=== PATIENT | female | born 1985 | race African-American/Black ===

== ENCOUNTER 2018-01-03 06:00 | Inpatient (IN) | payer OTHER ==
[2018-01-03 11:01] VITALS: BMI 31.0
[2018-01-03] MEDS ORDERED: HYDROcodone/Acetaminophen 5/325 mg Tablet PO PRN ×4 (11:20→18:00)
[2018-01-03] MEDS ORDERED: Ibuprofen 800 MG TAB PO PRN ×2 (11:20→18:00)
[2018-01-03] MEDS ORDERED: Lidocaine 1% (PF) 30 ML VIAL SC PRN (11:20)
[2018-01-03] MEDS ORDERED: Ondansetron HCl/PF 4 MG/2 ML Vial IVP PRN (11:20)
[2018-01-03] MEDS ORDERED: Sodium Chloride 0.9% 100 ML ONE (11:21)
[2018-01-03] MEDS ORDERED: Penicillin G Potassium 5 MILL.UNITS VIAL ONE (11:21)
[2018-01-03] MEDS ORDERED: Penicillin G Potassium 5 MILL.UNITS in Sodium Chloride 0.9% 100 ML IVPB SCH (11:30)
[2018-01-03] MEDS ORDERED: Lactated Ringer's 1,000 ML IV SCH (11:30)
[2018-01-03] MEDS ORDERED: NS w/ Oxytocin 10 units 500 ML IV SCH (11:30)
[2018-01-03 11:41] LABS: Hemoglobin 11.8 g/dL (12.0-16.0); Mean Corpuscular HGB CONC 32.3 g/dL (32.0-36.0); Mean Corpuscular Hemoglobin 29.7 pg (27.0-31.0); Mean Platelet Volume 10.1 fL (7.4-10.4); Platelet Count 131 thou/uL (130-400); RBC Distribution Width 12.7 % (11.5-14.5); Red Blood Cell (RBC) Count 3.99 mill/uL (4.20-5.40); White Blood Cell (WBC) Count 4.2 thou/uL (4.8-10.8)
[2018-01-03] MEDS: Dextrose 5%-Lactated Ringers 1,000 ML IV SCH (11:52)
[2018-01-03 12:23] LABS: HBSAg Index 0.18 S/CO (0-0.99); Hep B Surf Ag Non-Reactive S/CO (NonReactive)
[2018-01-03 12:25] LABS: Syphilis Antibody Nonreactive (Nonreactive); Syphilis Antibody Index 0.03 S/CO (<1.00 Non-Reactive)
[2018-01-03] MEDS ORDERED: Butorphanol Tartrate 1 MG/ML VIAL ONE (13:14)
[2018-01-03] MEDS ORDERED: Butorphanol Tartrate 1 MG/ML VIAL SLOW IVP PRN (13:52)
[2018-01-03] MEDS: Penicillin G 2.5 MILL.units 2.5 MILL.UNITS in Premix Bag 1 BAG IVPB SCH (14:59)
[2018-01-03] MEDS: NS / Oxytocin 40 units/1000ml 1,000 ML IV PRN ×2 (15:50→17:17)
[2018-01-03] MEDS ORDERED: Acetaminophen/Codeine 30-300mg Tablet PO PRN ×2 (18:00)
[2018-01-03] MEDS ORDERED: NS / Oxytocin 40 units/1000ml 1,000 ML IV SCH (18:00)
[2018-01-03] MEDS ORDERED: Methylergonovine 0.2 MG/ML VIAL IM PRN (18:00)
[2018-01-04] MEDS: Penicillin G 2.5 MILL.units 2.5 MILL.UNITS in Premix Bag 1 BAG IVPB SCH ×2 (09:02→09:04)
[2018-01-04] MEDS: Dextrose 5%-Lactated Ringers 1,000 ML IV SCH (09:05)
[2018-01-04 09:06] VITALS: BP 103/57; TEMP 98.1
[2018-01-04] MEDS ORDERED: Measles/Mumps/Rubella 10 MCG/0.5 ML VIAL SC ONE (16:00)
== END 2018-01-04 17:55 | disposition home or self-care (01) | DRG 775 ==
LOC: EEVIPCON 10:17 → L&D 10:17 → 3SW 18:17
PROVIDERS: ADMIT Obstetrics & Gynecology; ATTEND Obstetrics & Gynecology
PROC: 10E0XZZ Delivery of Products of Conception, External Approach (ICD-10-PCS; principal; 2018-01-03)
PROC: 10907ZC Drainage of Amniotic Fluid, Therapeutic from Products of Conception, Via Natural or Artificial Opening (ICD-10-PCS; 2018-01-03)
DX: O99.824 Streptococcus B carrier state complicating childbirth (principal); Z3A.39 39 weeks gestation of pregnancy; Z37.0 Single live birth
CPT/HCPCS: 36415; 85027; 86762; 86780; 86850; 86900; 86901; 87340; 90707; J0595; J2001; J2540; J7050

== ENCOUNTER 2020-02-29 11:33 | Outpatient (CLI) | payer OTHER ==
[2020-03-01 13:25] LABS: SARS-CoV-2 MS2 Positive; SARS-CoV-2 N Gene Negative; SARS-CoV-2 S Gene Negative; SARS-CoV-2 by NAA Not Detected (NotDetected); SARS-CoV-2 orf1ab Negative
== END 2020-02-29 11:34 | disposition home or self-care (01) ==
LOC: LABSCS 11:33
PROVIDERS: ATTEND Obstetrics & Gynecology
DX: Z20.828 Contact with and (suspected) exposure to other viral communicable diseases (principal)
CPT/HCPCS: 87635; U0003

== ENCOUNTER 2020-03-03 05:30 | Inpatient (IN) | payer OTHER ==
--- NOTE | 2020-03-03 01:04 | PDOC.LDHP ---
Labor and Delivery H&P HPI: 34 y/o at 39 weeks and 1 day, presents for term elective induction of labor. Current gestational age (weeks): 39 Due date: 03/09/20 Grav: 8 Para: 6 Current complications: none Abnormal US findings: No Current medications: pre- vitamins Allergies/Adverse Reactions: Allergies Allergy/AdvReac Type Severity Reaction Status Date / Time No Known Allergies Allergy Unverified 08/30/19 16:39 Social history: none - Physical Exam Vital signs reviewed and normal: yes General: NAD, resting Heart: RRR Lungs: CTAB Abdomen: gravid Extremeties: no edema FHT: category 1 - Assessment L&D Assessment: elective induction at term - Plan Plan: admit to L&D, cervical ripening
[~2020-03-03 05:30] MED LIST: Acetaminophen 500 MG TAB PO PRN; Butorphanol Tartrate 1 MG/ML VIAL SLOW IVP PRN; Carboprost 250 MCG/ML AMP IM PRN; Diphenoxylate HCl/Atropine Tablet PO PRN; Docusate 100 MG CAP PO PRN; HYDROcodone/Acetaminophen 5/325 mg Tablet PO PRN; Ibuprofen 800 MG TAB PO PRN; Lidocaine 1% (PF) 30 ML VIAL SC PRN; Methylergonovine 0.2 MG/ML VIAL IM PRN; Misoprostol 200 MCG TAB PR PRN; NS / Oxytocin 40 units/1000ml 1,000 ML IV PRN; NS w/ Oxytocin 10 units 500 ML IV SCH; Ondansetron PF 4 MG/2 ML Vial IVP PRN; Promethazine HCl 25 MG/ML VIAL IM PRN; hydrALAZINE 20 MG/ML VIAL SLOW IVP PRN
[2020-03-03 06:16] VITALS: BMI 35.5
[2020-03-03] MEDS: Lactated Ringer's 1,000 ML IV SCH ×2 (06:38→18:56)
[2020-03-03 06:52] LABS: Hemoglobin 11.2 g/dL (12.0-16.0); Mean Corpuscular HGB CONC 31.8 g/dL (32.0-36.0); Mean Corpuscular Hemoglobin 28.8 pg (27.0-31.0); Mean Corpuscular Volume 90.7 fL (78.0-98.0); Mean Platelet Volume 10.7 fL (7.4-10.4); Platelet Count 131 thou/uL (130-400); RBC Distribution Width 13.8 % (11.5-14.5); Red Blood Cell (RBC) Count 3.89 mill/uL (4.20-5.40); White Blood Cell (WBC) Count 4.6 thou/uL (4.8-10.8)
[2020-03-03 07:36] LABS: HBSAg Index 0.15 S/CO (0-0.99); Hep B Surf Ag Non-Reactive S/CO (NonReactive); Syphilis Antibody Nonreactive (Nonreactive); Syphilis Antibody Index 0.03 S/CO (<1.00 Non-Reactive)
[2020-03-03] MEDS ORDERED: NS / Oxytocin 40 units/1000ml 1,000 ML ONE (17:07)
[2020-03-03] MEDS ORDERED: Lidocaine 1% (PF) 30 ML VIAL ONE (17:07)
[2020-03-03] MEDS ORDERED: Carboprost 250 MCG/ML AMP ONE (17:08)
[2020-03-03] MEDS ORDERED: Misoprostol 200 MCG TAB ONE (17:08)
[2020-03-03] MEDS ORDERED: Promethazine HCl 25 MG/ML VIAL IM PRN (21:03)
[2020-03-03] MEDS ORDERED: Bisacodyl 10 MG SUPP PR PRN (21:03)
[2020-03-03] MEDS ORDERED: NS / Oxytocin 40 units/1000ml 1,000 ML IV SCH (21:03)
[2020-03-03] MEDS ORDERED: Misoprostol 200 MCG TAB VAG PRN (21:03)
[2020-03-03] MEDS ORDERED: Lanolin Ointment 7 GM TUBE TOP PRN (21:03)
[2020-03-03] MEDS ORDERED: Preparation H Ointment 28 GM TUBE PR PRN (21:03)
[2020-03-03] MEDS ORDERED: Adacel (T-DAP) 0.5 ML SYRINGE IM ONE (21:03)
[2020-03-03] MEDS ORDERED: diphenhydrAMINE 25 MG CAP PO PRN (21:03)
[2020-03-03] MEDS ORDERED: Zolpidem Tartrate 5 MG TAB PO PRN (21:03)
[2020-03-03] MEDS ORDERED: Ondansetron PF 4 MG/2 ML Vial IVP PRN (21:03)
[2020-03-03] MEDS ORDERED: Varicella virus, LIVE 0.5 ML VIAL SC ONE (21:03)
[2020-03-03] MEDS ORDERED: Benzocaine-Menthol 82.5 ML CAN TOP PRN (21:03)
[2020-03-03] MEDS ORDERED: Methylergonovine 0.2 MG/ML VIAL IM PRN (21:03)
[2020-03-03] MEDS ORDERED: hydrALAZINE 20 MG/ML VIAL SLOW IVP PRN (21:03)
[2020-03-03] MEDS ORDERED: Measles/Mumps/Rubella 10 MCG/0.5 ML VIAL SC ONE (21:03)
[2020-03-03] MEDS ORDERED: Milk Of Magnesia 30 ML UDCUP PO PRN (21:03)
[2020-03-03] MEDS ORDERED: HYDROcodone/Acetaminophen 5/325 mg Tablet PO PRN ×2 (21:03)
[2020-03-03] MEDS: Ibuprofen 800 MG TAB PO SCH (22:30)
[2020-03-04] MEDS: Docusate Calcium (SURFAK) 240 MG CAP PO SCH ×3 (02:28→19:27)
[2020-03-04] MEDS: Ibuprofen 800 MG TAB PO SCH ×3 (02:56→19:27)
[2020-03-04] MEDS: Lactated Ringer's 1,000 ML IV SCH (08:24)
[2020-03-04] MEDS: Ferrous Sulfate 325 MG TAB PO SCH ×2 (08:24→14:22)
--- NOTE | 2020-03-04 14:39 | PDOC.PP ---
Post Progress Note Post Day #: 1 PO intake tolerated: yes Flatus: yes Ambulation: yes Vital Signs (12 hours) Temp Pulse Resp BP BP Pulse Ox 03/04/20 11:47 97.5 F L 74 20 106/65 99 03/04/20 08:10 97.4 F L 70 18 117/71 99 03/04/20 04:30 98.1 F 88 18 108/64 97 Weight Weight 207 lb - Physical Examination General: NAD Cardiovascular: no m/r/g, RRR Respiratory: clear to auscultation bilaterally, non-labored breathing Abdominal: + bowel sounds, lochia, no distention, appropriately TTP Extremities: negative homans (B) Neurological: no gross focal deficits Psychiatric: A&Ox3, normal affect Result Diagrams: 03/03/20 06:32 Additional Labs: Post Labs Hep Bs Antigen Non-Reactive S/CO (NonReactive) 03/03/20 06:32 Blood Type O POSITIVE 03/03/20 06:32
[2020-03-05] MEDS: Ibuprofen 800 MG TAB PO SCH (03:24)
--- NOTE | 2020-03-05 04:02 | DN ---
DATE OF PROCEDURE: 03/03/2020 TIME OF SERVICE: At 1827 central daylight savings time. PREOPERATIVE DIAGNOSIS: Intrauterine at 39 weeks and zero days with a term induction of labor. POSTOPERATIVE DIAGNOSIS: Intrauterine at 39 weeks and zero days with a term induction of labor. PROCEDURES: Spontaneous vaginal delivery over intact perineum. FINDINGS: Viable male , weighing 3053 g or 8 pounds 15 ounces, Apgars 6 and 8. QUANTITATIVE BLOOD LOSS: 75 mL. COMPLICATIONS: None. PROCEDURE IN DETAIL: The patient presented to [facility] where she was admitted to the labor and delivery service. The patient underwent a normal and uneventful labor with normal cervical dilatation until she was found to be completely dilated. She was then allowed to push and was able to bring the baby down and delivered the baby in a vertex presentation without difficulties. Once the head delivered in occiput anterior position, the shoulders followed spontaneously along with the rest of the baby's body. Once out the baby's mouth and nose were bulb suctioned. The cord was clamped and cut and baby was handed to waiting attendants. Cord blood was collected. Gentle fundal massage was performed and the placenta delivered intact without problems. Hemostasis was assured. Quantitative blood loss was calculated. Inspection of the cervix, vaginal vault, and perineum did not reveal any lacerations needing suturing. Once again, hemostasis was within normal limits and the patient was allowed to recover in the labor and delivery room. Baby went to nursery. Job ID: [id number]
[2020-03-05 08:10] VITALS: BP 135/74; TEMP 97.9
== END 2020-03-05 09:20 | disposition home or self-care (01) | DRG 807 ==
LOC: L&D 05:31 → 3SW 22:18
PROVIDERS: ADMIT Obstetrics & Gynecology; ATTEND Obstetrics & Gynecology
PROC: 10E0XZZ Delivery of Products of Conception, External Approach (ICD-10-PCS; principal; 2020-03-03)
PROC: 3E0P7VZ Introduction of Hormone into Female Reproductive, Via Natural or Artificial Opening (ICD-10-PCS; 2020-03-03)
DX: O80 Encounter for full-term uncomplicated delivery (principal); Z37.0 Single live birth; Z3A.39 39 weeks gestation of pregnancy; Z20.828 Contact with and (suspected) exposure to other viral communicable diseases
CPT/HCPCS: 36415; 85027; 86780; 86850; 86900; 86901; 87340; J0595; J2001; J2590; J3490

== ENCOUNTER 2021-06-07 09:09 | Outpatient (CLI) | payer OTHER | END 2021-06-07 09:10 | disposition home or self-care (01) | LOC: BICMAMMO 09:09 | PROVIDERS: ATTEND Student in an Organized Health Care Education/Training Program | DX: N60.01 Solitary cyst of right breast (principal) | CPT/HCPCS: 77066; G0279 ==